=== PATIENT | female | born 1980 | race Caucasian/White ===

== ENCOUNTER 2016-12-05 19:47 | Emergency (ER) | payer MEDICAID ==
--- NOTE | 2016-12-07 13:34 | ER ---
ADMIT: 12/05/2016 RM/LOC: ER [facility] MR#: [id number] [address] [id number] [place] [address] Emergency Room Report SEX: F AGE: 36 : 1980 DATE: 12/05/2016 CHIEF COMPLAINT: Stepped on nail. HISTORY OF PRESENT ILLNESS: A 36-year-old female presents to the ED for evaluation of her right foot. States she was at home when she stepped on a nail. She has had persistent pain and swelling since this time. Currently, rates her pain as a 6/10. She has significant pain with movement difficulty walking. PAST MEDICAL HISTORY: D and C, x4, bilateral tubal ligation, partial hysterectomy, appendectomy. Tetanus update in the ER today. MEDICATIONS: None. ALLERGIES: AMOXIL. SOCIAL HISTORY: Smokes a pack per day. No recent alcohol use. COURSE IN THE EMERGENCY ROOM: The patient was seen and examined. GENERAL: Afebrile, nontoxic, in no acute distress. EXTREMITIES: Examination of the right foot reveals some soft tissue tenderness. There is evidence of small puncture wound just proximal to her second digit on her right foot on the plantar surface. She has a full range of motion at the toes. Brisk capillary refill. Sensation is intact to light touch. Ankle normal inspection. Gait antalgic. SKIN: Puncture wound as above. While in the department, she did receive an updated Tdap. She was given a dose of Bactrim DS 1 tab p.o. CLINICAL IMPRESSION: Puncture wound, right foot. DISPOSITION: Discharged home on Bactrim DS 1 tab p.o. b.i.d. for 7 days. She is to rest ice compress elevate. Tylenol or Motrin for pain. Return with worsening signs or symptoms. Monitor for infection. Follow up sooner as needed. Discharged home in stable condition. KAJAL Marrufo / Alvin Cerda MD / aleshia JOB #: [id number] CC: Alvin Cerda MD, Attending Physician Claire Pulido MD, Family Physician
== END 2016-12-05 20:24 | disposition home or self-care (01) ==
LOC: ER 19:47
DX: S91.331A Puncture wound without foreign body, right foot, initial encounter (principal); F17.210 Nicotine dependence, cigarettes, uncomplicated; Z88.1 Allergy status to other antibiotic agents; Z90.49 Acquired absence of other specified parts of digestive tract; Z90.710 Acquired absence of both cervix and uterus; Z98.51 Tubal ligation status; W45.0XXA Nail entering through skin, initial encounter